=== PATIENT | male | born 1985 | race African-American/Black ===

== ENCOUNTER 2019-04-09 20:20 | Emergency (ER) | payer SELFPAY ==
[2019-04-09] MEDS ORDERED: Ibuprofen 200 MG TAB ONE (20:50)
== END 2019-04-09 21:31 | disposition home or self-care (01) ==
LOC: BURERS 20:20
DX: J06.9 Acute upper respiratory infection, unspecified (principal); A08.4 Viral intestinal infection, unspecified; F17.210 Nicotine dependence, cigarettes, uncomplicated
CPT/HCPCS: 87081; 87430; 87804

== ENCOUNTER 2021-03-09 13:18 | Emergency (ER) | payer SELFPAY ==
[2021-03-09] MEDS ORDERED: Lidocaine 1% w/Epinephrine 1:100K 20 ML VIAL ONE (13:33)
[2021-03-09] MEDS ORDERED: Boostrix 0.5 ML (Tdap) VIAL ONE (13:57)
== END 2021-03-09 14:05 | disposition home or self-care (01) ==
LOC: BURERS 13:18
DX: L02.31 Cutaneous abscess of buttock (principal); F17.210 Nicotine dependence, cigarettes, uncomplicated; Z23 Encounter for immunization
CPT/HCPCS: 10060; 87070; 87205; 90471; 90715

== ENCOUNTER 2021-06-17 01:13 | Emergency (ER) | payer OTHER, SELFPAY ==
[2021-06-17] MEDS ORDERED: Morphine 4 MG/ML VIAL ONE ×2 (01:27→05:03)
[2021-06-17 01:37] LABS: INR-International Normal Ratio 1.1; Prothrombin Time 14.3 sec (12.0-14.7)
[2021-06-17 01:44] LABS: #Basophils 0.2 thou/uL (0.0-0.2); #Eosinphils 0.3 thou/uL (0.0-0.7); #Lymphocytes 2.5 thou/uL (1.20-3.40); #Monocytes 0.7 thou/uL (0.11-0.59); #Neutrophils 4.2 thou/uL (1.40-6.50); %Eosinophils 3.5 % (0.0-10.0); %Lymphocytes 32.2 % (21.0-51.0); %Monocytes 8.5 % (0.0-10.0); %Neutrophils 53.8 % (42.0-75.0); Hemoglobin 14.4 g/dL (14.0-18.0); Mean Corpuscular Volume 93.7 fL (78.0-98.0); Mean Platelet Volume 6.3 fL (7.4-10.4); Platelet Count 349 thou/uL (130-400); RBC Distribution Width 12.2 % (11.5-14.5); Red Blood Cell (RBC) Count 4.81 mill/uL (4.70-6.10); White Blood Cell (WBC) Count 7.8 thou/uL (4.8-10.8)
[2021-06-17 02:05] LABS: ALT (SGPT) 19 U/L (8-55); AST (SGOT) 30 U/L (5-34); Albumin 4.2 g/dL (3.5-5.0); Alkaline Phosphatase 59 U/L (40-110); Anion Gap 15 mmol/L (10-20); BUN (Urea Nitrogen) 7 mg/dL (8.9-20.6); Bilirubin, Total 0.5 mg/dL (0.2-1.2); Calc. Creatinine Clearance 0 mL/min (70-130); Calcium 9.1 mg/dL (7.8-10.44); Carbon Dioxide 22 mmol/L (22-29); Chloride 105 mmol/L (98-107); Globulin 3.7 g/dL (2.4-3.5); Glucose 105 mg/dL (70-105); Potassium 3.4 mmol/L (3.5-5.1); Protein, Total 7.9 g/dL (6.0-8.3); Sodium 139 mmol/L (136-145)
[2021-06-17] MEDS ORDERED: cefTRIAXone\\ROCEPHIN 1 GM VIAL ONE (05:03)
== END 2021-06-17 08:55 | disposition home or self-care (01) ==
LOC: BURERS 01:13
DX: S02.40CA Maxillary fracture, right side, initial encounter for closed fracture (principal); S03.2XXA Dislocation of tooth, initial encounter; F17.210 Nicotine dependence, cigarettes, uncomplicated; V19.9XXA Pedal cyclist (driver) (passenger) injured in unspecified traffic accident, initial encounter; Y93.55 Activity, bike riding
CPT/HCPCS: 70450; 70486; 72125; 80053; 85025; 85610; 96374; 96375; 96376; J0696; J2270

== ENCOUNTER 2022-06-30 11:38 | Emergency (ER) | payer SELFPAY ==
[2022-06-30] MEDS ORDERED: traMADol HCl 50 MG TAB ONE (13:27)
[2022-06-30] MEDS ORDERED: Ibuprofen 800 MG TAB ONE (13:27)
== END 2022-06-30 13:42 | disposition home or self-care (01) ==
LOC: BURERS 11:38
DX: S93.401A Sprain of unspecified ligament of right ankle, initial encounter (principal); S96.911A Strain of unspecified muscle and tendon at ankle and foot level, right foot, initial encounter; F17.210 Nicotine dependence, cigarettes, uncomplicated; X58.XXXA Exposure to other specified factors, initial encounter

== ENCOUNTER 2022-11-09 11:59 | Emergency (ER) | payer OTHER, SELFPAY ==
[2022-11-09] MEDS ORDERED: Ketorolac Tromethamine 60 MG/2 ML VIAL ONE (12:37)
== END 2022-11-09 12:44 | disposition home or self-care (01) ==
LOC: BURERS 11:59
DX: S29.012A Strain of muscle and tendon of back wall of thorax, initial encounter (principal); F17.210 Nicotine dependence, cigarettes, uncomplicated; X58.XXXA Exposure to other specified factors, initial encounter
CPT/HCPCS: 96372; J1885